=== PATIENT | male | born 1980 | race Caucasian/White ===

== ENCOUNTER 2020-11-11 22:14 | Emergency (ER) | payer BC, SELFPAY ==
--- NOTE | ~2020-11-11 | CT_ITS ---
EXAMINATION: CTA chest PE protocol DATE: 11/12/2020 00:11 INDICATION: Chest pain, shortness of breath and elevated d-dimer. TECHNIQUE: Computed tomography (CT) pulmonary angiogram of the chest was performed with 100 mL Omnipa que-350 intravenous contrast. Additional 3D reconstructions utilizing coronal maximum intensity proje ction (MIP) were performed. Automated exposure control and iterative reconstruction technique were em ployed. The dose-length product was 542.42 mGy-cm. COMPARISON: None FINDINGS: Good but suboptimal contrast opacification of the pulmonary arteries. There is some bands of mild str eak artifact resulting from dense contrast in the superior vena cava and right atrium. Mild scattered respiratory motion artifact. There appears to be a pulmonary arterial filling defect in the anteroba silar segmental pulmonary artery of the left lower lobe. No other pulmonary emboli appreciated. There are scattered subtle patchy groundglass opacities with peripheral predominance throughout both lungs suspicious for COVID pneumonia. There are bands of linear discoid atelectasis/scarring in the bilate ral lower lobes. No smooth septal line thickening to suggest pulmonary edema. No pleural effusion or pneumothorax. Heart size is normal. No pericardial effusion. Thoracic aorta is normal in caliber with no dissection. Diffuse hepatic steatosis with focal sparing along the gallbladder fossa. Visualized upper abdomen is otherwise unremarkable. IMPRESSION: 1. Suggestion of a single pulmonary arterial filling defect in the anterobasilar segment of pulmonary artery of the left lower lobe with specificity decreased by suboptimal contrast opacification and so me mild streak artifact. 2. Patchy peripheral predominant groundglass opacities scattered throughout both lungs consistent wit h COVID pneumonia. 3. Diffuse hepatic steatosis. Reviewed, dictated and finalized at location A. INE RIGGER IMPRESSION: 1. Suggestion of a single pulmonary arterial filling defect in the anterobasila r segment of pulmonary artery of the left lower lobe with specificity decreased by suboptimal contrast opacification and some mild streak artifact. 2. Patchy peripheral predominant groundglass opacities scattered throughout bot h lungs consistent with COVID pneumonia. 3. Diffuse hepatic steatosis.
--- NOTE | ~2020-11-11 | XR_ITS ---
EXAMINATION: XR chest 1V portable DATE: 11/11/2020 23:16 INDICATION: COVID positive presenting with shortness breath, cough, fever and body aches TECHNIQUE: frontal view of the chest was obtained. COMPARISON: None FINDINGS: The lungs are clear with no focal airspace opacities, pulmonary edema, pleural effusion or pneumothor ax. The cardiomediastinal silhouette is normal. Mild lower thoracic levocurvature. IMPRESSION: 1. No evident acute cardiopulmonary disease. Reviewed, dictated and finalized at location A. [employer]ATIVE ENGRAVER
[2020-11-11 22:30] VITALS: BP 122/86; PULSE 90; RESP 18; TEMP 36.9; O2SAT 94
[2020-11-11 22:41] VITALS: O2SAT 97
--- NOTE | 2020-11-11 22:42 | ECG_ITS ---
Measurements Intervals [place] Rate: 87 P: 124 [place]: 141 QRS: -27 QRSD: 89 T: 0 QT: 345 QTc: 416 Interpretive Statements SINUS RHYTHM INCOMPLETE RIGHT BUNDLE BRANCH BLOCK MINIMAL Q WAVES- HIGH LATERAL LEADS NONSPECIFIC T-WAVE ABNORMALITY- INF/HIGH LAT LEADS BORDERLINE ECG Electronically Signed On 11-12-2020 7:16:29 [employer] by Jareth Romero D.O.
[2020-11-11 22:45] VITALS: O2SAT 94
[2020-11-11 22:46] VITALS: BP 124/81; O2SAT 96
--- NOTE | 2020-11-11 22:46 | ED.URI ---
HPI - URI/Sore Throat General Chief Complaint: Upper Respiratory Infection Stated Complaint: Short of breath, fever, cough, pneumonia? Time Seen by Provider: 11/11/20 22:32 Source: patient Mode of arrival: ambulatory Limitations: no limitations History of Present Illness HPI Narrative: This patient is a 40 year old male who presents for evaluation of possible COVID pneumonia. He received positive results for covid yesterday. He developed symptoms 8 days ago. He reports intermittent fever . He had a fever 101 F today, and he took 1000 mg tylenol 3 hours ago. He also reports cough and shortness of breath for 8days. He states his shortness of breath has improved althought it is still presents with exertion. He also reports constant, nonradiating left chest pain. He lost his taste and smell several days ago but he states it is returning. He has come to ER today because he lives alone. Related Data Allergies Allergy/AdvReac Type Severity Reaction Status Date / Time NKDA Allergy Unknown Uncoded 04/24/03 12:43 NKFA Allergy Unknown Uncoded 04/24/03 12:43 NO KNOWN DRUG ALLERGIES Allergy Y Uncoded 04/24/03 13:39 (Class Allergy) Review of Systems Review of Systems: All systems reviewed & are unremarkable except as noted in HPI and below Constitutional: Constitutional: Reports chills, Reports fatigue and Reports fever(s) Cardiovascular: Cardiovascular: Reports chest pain Respiratory: Respiratory: Reports cough and Reports dyspnea Gastrointestinal: Gastrointestinal: Denies abdominal pain, Denies diarrhea, Denies nausea and Denies vomiting PMFSH Past Medical History Medical History (Updated 11/12/20 @ 04:22 by Jennifer Tate MD) Patient denies medical problems Surgical History Surgical History (Updated 11/11/20 @ 22:47 by Jennifer Tate MD) Hx of appendectomy Social History Social History (Updated 11/11/20 @ 22:47 by Jennifer Tate MD) Smoking packs per day: 10 Smoking cigarettes per day: 200.0 Smoking status: Former smoker Exam Const: General: alert; No ill appearing Orientation/consciousness: patient oriented x3 HENMT: Head: normocephalic and atraumatic Ears: TM's normal bilaterally Face and sinus: normal facial exam, sinuses nontender and face symmetric Mouth: Yes Normal oral and palatal mucosa present, Yes lip normal, Yes oropharynx normal and Yes moist mucous membranes Throat: uvula midline Eyes: EOM: EOMs intact bilaterally Chest: Chest palpation & inspection: normal inspection of the chest Resp: Effort & Inspection: normal respiratory effort and no retractions Auscultation: clear to auscultation bilaterally Cardio: Rate: regular rate Rhythm: regular rhythm Heart sounds: no murmurs GI: GI Palp: Yes Soft to palpation, No Tenderness to palpation present (GI) and No Guarding due to palpation present (GI) Auscultation: normal bowel sounds Skin: General skin exam: normal color Rashes: no rashes Neuro: General: patient oriented x3 and moves all extremities Extrem: General: normal to inspection and no pedal edema Psych: Mental Status: mental status grossly normal Affect: normal affect Course Consultations Consultation #1: I Discussed case and CT scan with Dr Zeus Machado. She states patient does not need to be admitted. She does not think PE is of any significance but recommends speaking to pulmonology about follow up . Date: 11/12/20 Time: 02:52 Consultation #2: I spoke with Dr. Gann about patient. He states patient needs to follow up with PCP . If PCP would like to refer then they will see patient. Date: 11/12/20 Time: 03:01 Consultation #3: I spoke with Dr. Sigala who agrees to follow up with patient given covid and possible PE Date: 11/12/20 Time: 04:19 Vital Signs Vital signs: Vital Signs Temperature 98.4 F 11/11/20 22:30 Pulse Rate 90 11/11/20 22:30 Respiratory Rate 18 11/11/20 22:30 Blood Pressure 122/86 11/11/20 22:30 Pulse Oximetry
--- NOTE | 2020-11-11 23:00 | PC.NURSE ---
Assumed care of pt. at this time. Report from TROY Barrios
[2020-11-11 23:05] LABS: Basophils Percent Auto 0.4 % (0.2-1.2); Eosinophils Percent Auto 0.6 % (0-4.4); Hemoglobin 14.9 g/dL (14.0-18.0); Immature Granulocyte Absolute 0.02 K/mm3 (0.00-0.031); Immature Granulocyte Percent A 0.4 % (0-0.5); Lymphocytes Absolute Auto 1.99 K/mm3 (0.9-3.2); Lymphocytes Percent Auto 37.8 % (18.3-44.2); Mean Corpuscular HGB Conc 33.9 g/dl (32-36); Mean Corpuscular Hemoglobin 29.3 pg (26-34); Mean Corpuscular Volume 86.6 fl (80-100); Mean Platelet Volume 10.3 fl (7.4-10.4); Monocytes Absolute Auto 0.3 K/mm3 (0.1-0.6); Monocytes Percent Auto 6.3 % (2.6-8.5); Neutrophils Absolute Auto 2.9 K/mm3 (1.3-6.7); Neutrophils Percent Auto 54.5 % (45.5-73.1); Platelet Count Result 208 k/mm3 (150-375); Red Blood Count 5.08 M/mm3 (4.6-6.20); Red Cell Distribution Width 12.9 % (11.5-14.5); White Blood Count 5.3 K/mm3 (4.5-10.0)
[2020-11-11 23:06] LABS: Alveolar/Arterial O2 Gradient 43.9 mmHg; Base Excess ABG -1.3 mEq/l (+/-2.0); Carboxyhemoglobin 0.2 % THb (0-2.0); Fractional Inspired Oxygen 21 %; HCO3 ABG 22.9 mEq/l (22.0-26.0); Methemoglobin ABG 0.2 %THb (0-1.5); Oxygen Content ABG 19.4 %vol (16.0-22.0); Oxyhemoglobin 92.5 % THb (90.0-100.0); PO2 ABG 61.5 mmHg (80.0-100.0); PO2 FiO2 Ratio Arterial Blood 2.93 %; Reduced Hemoglobin 7.1 %THb (0-5.0); Total Hemoglobin 14.9 g/dL (12.0-18.0)
[2020-11-11 23:07] LABS: Device ROOM AIR; Modified Allen's Test Pass; Site Drawn RIGHT RADIAL
[2020-11-11] MEDS: ALBUTEROL SULFATE (*SP) AEROSOL 1 PUFF 6 PUFF INHALATION (23:10)
[2020-11-11 23:16] VITALS: O2SAT 95
[2020-11-11 23:18] LABS: INR 0.8; Prothrombin Time 11.5 Seconds (11.1-14.7)
[2020-11-11 23:21] LABS: D Dimer 0.51 ug/mL (<0.48)
[2020-11-11 23:30] LABS: Alanine Aminotransferase 101 U/L (4-50); Albumin Level 3.8 g/dL (3.5-5.1); Alkaline Phosphatase 64 U/L (38-126); Anion Gap 7 mmol/L (8-16); Aspartate Amino Transferase 65 U/L (17-59); Bilirubin,Total 0.4 mg/dL (0.2-1.3); Blood Urea Nitrogen 16 mg/dL (9-20); CRP 0.8 mg/dL (<1.0); Calcium 8.1 mg/dL (8.4-10.2); Carbon Dioxide 26 mmol/L (22-30); Chloride 104 mmol/L (98-107); Estimated CRCL calculation 92 ml/min; Estimated Glomerular Filt Rate > 60; Glucose 118 mg/dL (75-110); Potassium 4.1 mmol/L (3.4-5.0); Sodium 137 mmol/L (137-145)
[2020-11-11 23:39] LABS: Troponin I < 0.012 ng/mL (0.000-0.034)
--- NOTE | 2020-11-11 23:55 | PC.NURSE ---
Pt. to CT
[2020-11-12] VITALS (33 sets, daily range): BP systolic 100–121; BP diastolic 59–83; PULSE 78–102; RESP 12–24; TEMP 37.2–37.8; O2SAT 92–99
[2020-11-12 00:07] LABS: Add Urine Microscopic? YES; Appearance Urine Clear (Clear); Bilirubin Urine Negative (Negative); Blood Urine Negative (Negative); Color Urine Yellow (Yellow); Glucose Urine UA Negative (Negative); Ketones Urine Negative (Negative); Leukocyte Esterase Ur Negative LEU/UL (Negative); Mucus Urine Rare /lpf; Nitrate Urine Negative (Negative); Protein Urine Negative (Negative); RBC Urine 0-2 /hpf (0-2); Specific Grav Ur 1.027 (1.001-1.035); Urobilinogen Urine Negative mg/dL (<2.0); WBC Urine 0-3 /hpf
[2020-11-12] MEDS: DEXAMETHASONE 2 MG TABLET 6 MG PO (02:46)
[2020-11-12] MEDS: ENOXAPARIN 100 MG/ML SYRINGE 90 MG SUB-Q (02:46)
== END 2020-11-12 04:30 | disposition home or self-care (01) ==
PROVIDERS: Emergency Provider General Practice
DX: U07.1 COVID-19 (principal); J12.82 Pneumonia due to coronavirus disease 2019; Z87.891 Personal history of nicotine dependence; I26.99 Other pulmonary embolism without acute cor pulmonale; K76.0 Fatty (change of) liver, not elsewhere classified
CPT/HCPCS: 36415; 36600; 71045; 71275; 80053; 81001; 82375; 82805; 83050; 83735; 84484; 85025; 85380; 85610; 85730; 86140; 87804; 93005; 94640; 96372; 99284; A9270; J1650; J8540; Q9967